=== PATIENT | female | born 1985 | race Caucasian/White ===

== ENCOUNTER → 2016-10-06 | Outpatient (CLI) | payer OTHER ==
[~2016-10-06] MED LIST: ALESSE-281 EACH PO; AMITRIPTYLINE H10 MG PO; ANTIVERT25 MG PO; BUTALB-APAP-CA1 EACH PO; CIPRO500 MG PO; IMITREX50 MG PO; LUTERA1 EAC1 PO; METHADONE10 MG PO; METHADONE5 MG PO; NOHOMEMEDS; ORSYTHIA1 EACH PO; PRISTIQ50 MG PO; RIZATRIPTAN10 MG PO
== END | disposition home or self-care (01) ==
LOC: AMB 12:43
DX: M54.5 Low back pain (principal); Z98.1 Arthrodesis status
CPT/HCPCS: 62304; 72132

== ENCOUNTER 2016-11-29 05:36 | Inpatient (IN) | payer OTHER ==
[~2016-11-29] VITALS: Ht 162.6 cm; Wt 82.0 kg
[~2016-11-29 05:36] MED LIST changes: +METHADONE 22 MG/1 ML PO; +METHADONE1 MG/1 ML PO
[2016-11-29 05:57] VITALS: BP 131/82
[2016-11-29 15:06] VITALS: BP 131/60
[2016-11-29 19:53] VITALS: BP 116/58
[2016-11-30 00:12] VITALS: BP 106/49
[2016-11-30 04:22] VITALS: BP 98/57
[2016-11-30] MEDS ORDERED: CYCLOBENZAPRINE10 MG PO (07:36)
[2016-11-30] MEDS ORDERED: OXYCODONE-APAP1 EACH PO (07:36)
[2016-11-30] MEDS ORDERED: OXYCONTIN10 MG PO (07:36)
[2016-11-30 07:49] VITALS: BP 106/58
[2016-11-30 16:15] VITALS: BP 99/52
== END 2016-11-30 18:54 | disposition home or self-care (01) | DRG 460 ==
LOC: 2SOUTH 05:36 → 3EAST 05:36 → 2SOUTH 13:55 → 3EAST 13:56 → 2SOUTH 14:46 → 3EAST 11-30 18:54
DX: T84.89XA Other specified complication of internal orthopedic prosthetic devices, implants and grafts, initial encounter (principal); F17.210 Nicotine dependence, cigarettes, uncomplicated; M54.16 Radiculopathy, lumbar region; Z98.1 Arthrodesis status; M54.5 Low back pain
CPT/HCPCS: 36415; 72100; 76000; 80048; 84702; 85025; 86900; 86901; C1821; J0131; J0330; J1100; J1170; J1885; J2060; J2250; J2405; J2930; J3010; J3370; J3480; S0020

== ENCOUNTER 2017-03-21 20:03 | Emergency (ER) | payer OTHER ==
[~2017-03-21] VITALS: Ht 162.6 cm; Wt 97.2 kg
[~2017-03-21 20:03] MED LIST changes: +CYCLOBENZAPRINE10 MG PO; +OXYCODONE-APAP1 EACH PO; +OXYCONTIN10 MG PO
[2017-03-21 23:14] VITALS: BP 129/93
== END 2017-03-21 23:16 | disposition home or self-care (01) ==
LOC: EME 20:03
DX: G43.909 Migraine, unspecified, not intractable, without status migrainosus (principal); F32.9 Major depressive disorder, single episode, unspecified; Z98.1 Arthrodesis status; F19.10 Other psychoactive substance abuse, uncomplicated; F17.200 Nicotine dependence, unspecified, uncomplicated; Z88.0 Allergy status to penicillin
CPT/HCPCS: 99281; 99285; J1100; J1200; J1885; J2765; J7030

== ENCOUNTER 2017-04-20 17:34 | Emergency (ER) | payer OTHER ==
[~2017-04-20] VITALS: Ht 162.6 cm; Wt 98.4 kg
== END 2017-04-20 20:40 | disposition home or self-care (01) ==
LOC: EME 17:34
DX: J06.9 Acute upper respiratory infection, unspecified (principal); F17.200 Nicotine dependence, unspecified, uncomplicated; Z88.0 Allergy status to penicillin; Z88.1 Allergy status to other antibiotic agents; Z91.040 Latex allergy status
CPT/HCPCS: 99281; 99282; J1100

== ENCOUNTER → 2017-05-14 16:03 | Emergency (ER) | payer OTHER ==
[~2017-05-14] VITALS: Ht 162.6 cm; Wt 91.0 kg
[2017-05-14 16:10] VITALS: BP 0/0
== END | disposition left against medical advice (07) ==
LOC: EME 16:03
DX: R07.9 Chest pain, unspecified (principal); R06.02 Shortness of breath; Z53.21 Procedure and treatment not carried out due to patient leaving prior to being seen by health care provider
CPT/HCPCS: J2930

== ENCOUNTER 2017-09-23 10:48 | Emergency (ER) | payer OTHER ==
[~2017-09-23] VITALS: Ht 162.6 cm; Wt 90.9 kg
[2017-09-23 13:52] VITALS: BP 134/103
== END 2017-09-23 13:53 | disposition home or self-care (01) ==
LOC: EME 10:48
DX: S30.0XXA Contusion of lower back and pelvis, initial encounter (principal); W10.9XXA Fall (on) (from) unspecified stairs and steps, initial encounter; R20.0 Anesthesia of skin; G89.29 Other chronic pain; Z79.891 Long term (current) use of opiate analgesic; Z98.1 Arthrodesis status; F17.200 Nicotine dependence, unspecified, uncomplicated
CPT/HCPCS: 72100; 72220; 99281; 99283